=== PATIENT | female | born 1955 | race Hispanic/Latino ===

== ENCOUNTER 2021-02-12 22:22 | Emergency (ER) | payer MEDICAID ==
[~2021-02-12] VITALS: Ht 170.2 cm; Wt 105.2 kg
[2021-02-12 22:40] VITALS: BP 175/69
[2021-02-12] MEDS: CETIRIZINE HCL 5 MG TABLET PO SCH ×2 (23:44→23:49)
[2021-02-13 00:34] LABS: CREATININE 0.7 mg/dL (0.5-1.5); POTASSIUM 4.2 mmol/L (3.5-5.1)
[2021-02-13 00:35] LABS: BASOPHILS % (AUTO) 0.8 % (0.0-5.0); EOSINOPHILS % (AUTO) 7.5 % (0.0-8.0); HEMATOCRIT 41.2 % (36-48); LYMPHOCYTES % (AUTO) 17.8 % (21.0-51.0); MEAN CORPUSCULAR HEMOGLOBIN 29.8 pg (27.0-33.0); MEAN CORPUSCULAR HGB CONC 31.1 g/dL (32.0-36.0); MONOCYTES % (AUTO) 8.9 % (3.0-13.0); NEUTROPHILS % (AUTO) 64.4 % (40.0-77.0); PLATELET COUNT (AUTO) 329 K/uL (130-400); RED BLOOD CELL COUNT(AUTO) 4.29 MIL/uL (4.00-5.50); RED CELL DISTRIBUTION WIDTH 14.3 % (11.0-15.5); WHITE BLOOD COUNT (AUTO) 11.9 K/uL (4.8-10.8)
[2021-02-13 00:38] LABS: ALBUMIN 3.5 g/dL (3.5-5.0); BILIRUBIN,TOTAL 0.3 mg/dL (0.2-1.0); CRP QUANTITATIVE 24.2 mg/L (0.00-9.0); TOTAL PROTEIN, SERUM 7.8 g/dL (6.0-8.3)
[2021-02-13 00:48] VITALS: BP 161/67
[2021-02-13] MEDS ORDERED: CLIN150C10 PO (01:11)
[2021-02-13] MEDS ORDERED: CETI-89 PO (01:20)
[2021-02-13] MEDS ORDERED: LA/L175C PO (01:20)
== END 2021-02-13 01:40 | disposition home or self-care (01) ==
LOC: EDH 22:22
DX: J32.9 Chronic sinusitis, unspecified (principal); J02.9 Acute pharyngitis, unspecified; I10 Essential (primary) hypertension; Z79.899 Other long term (current) drug therapy; Z20.822 Contact with and (suspected) exposure to COVID-19
CPT/HCPCS: 36415; 71045; 80053; 85025; 86140; 87635; 87804 ×2; 87880; 99284; C9803